=== PATIENT | female | born 1980 | race Caucasian/White ===

== ENCOUNTER 2021-02-13 15:44 | Inpatient (IN) | payer MEDICAID, SELFPAY ==
[2021-02-13 15:47] VITALS: BP 99/63; PULSE 77; RESP 15; TEMP 36.4; O2SAT 98; BMI 19.1
[2021-02-13 16:48] VITALS: BP 107/81; PULSE 78; RESP 16; O2SAT 99
--- NOTE | 2021-02-13 16:49 | EX.ED.SAOD ---
HPI History of Present Illness Chief Complaint: Substance Abuse Narrative Narrative: 40-year-old female presenting for detox from fentanyl. She states she does this daily and does this intravenously. Patient states that she has been doing this for about 4 months. Patient states that prior to that she was then senior care from [id number]. When she left senior care she was in a [place] [facility] for a while. She only recently started doing fentanyl. She is never formally detoxed. She does get detox symptoms from opioids and states that she will get nausea, vomiting, restless legs, abdominal cramping. She denies any other medical problems. She states she only occasionally drinks alcohol and occasionally uses marijuana. She does admit to methamphetamine abuse. [facility] Medical History (Updated 02/13/21 @ 18:23 by AUBREE Kirby) Anxiety Depression Heart murmur Smoker Substance abuse Home Medications doxycycline monohydrate 100 mg PO BID 02/13/21 [History Last Taken Unknown] fluoxetine 10 mg PO DAILY 02/13/21 [History Last Taken Unknown] Allergy/AdvReac Type Severity Reaction Status Date / Time bupropion [From Wellbutrin] Allergy Other Verified 02/13/21 15:45 sulfamethoxazole Allergy Hives Verified 02/13/21 15:45 [From Bactrim] trimethoprim [From Bactrim] Allergy Hives Verified 02/13/21 15:45 Family History (Updated 02/13/21 @ 18:15 by HALEY KirbyC) Father Hypertension Mother CVA (cerebral vascular accident) Surgical History (Updated 02/13/21 @ 18:16 by AUBREE Kirby) History of incision and drainage Social History (Updated 02/13/21 @ 18:17 by AUBREE Kirby) Smoking Status: Current every day smoker tobacco type: cigarettes Smoking packs per day: 1 Smoking cigarettes per day: 20.0 Years smoked: 20 Smoking pack-years: 20.00 alcohol intake: current alcohol intake frequency: a few times a month substance use type: marijuana, opiates and methamphetamine ROS ROS ED Constitutional Constitutional ED: Denies chills, fever(s) or sweats Eyes Eyes: Denies blurry vision or change in vision ENT ENT ED: Denies ear pain, rhinorrhea or sore throat Cardiovascular Cardiovascular: Denies chest pain, palpitations or racing heartbeat Respiratory/Chest Respiratory/Chest: Denies cough, dyspnea or sputum Gastrointestinal Gastrointestinal: Denies abdominal pain, constipation, diarrhea or vomiting Genitourinary Genitourinary ED: Denies dysuria, hematuria or urinary frequency Musculoskeletal Musculoskeletal: Denies arthralgias, myalgias or neck pain Integumentary Denies abscess, Abrasions or rash Neurologic Neurologic: Denies headache(s), paresthesias or weakness Psychiatric Psychiatric: Denies anxiety, depression, suicidal ideation or suicidal thoughts Endocrine Endocrinology: Denies polydipsia or polyuria EXAM Physical Exam Const Vital Signs: 02/13/21 15:47 02/13/21 16:48 Temperature 97.6 F L Temperature Source Temporal Pulse Rate 77 78 Respiratory Rate 15 16 Blood Pressure 99/63 107/81 H Blood Pressure Mean 75 89 Pulse Ox 98 99 Oxygen Delivery Method Room Air Room Air Positive well nourished General Appearance ED: NAD; Negative for pallor HEENT Reports normocephalic, head/scalp atraumatic and moist mucous membranes Eyes PERRL and EOMs intact bilaterally Neck no lymphadenopathy and supple Chest Wall inspection of chest normal and palpation of chest normal Resp normal respiratory effort and clear to auscultation bilaterally Auscultation: Negative for rales, rhonchi or wheezes Cardio regular rate and regular rhythm GI normal to inspection, nondistended, normoactive bowel sounds and non-distended Auscultation: normoactive bowel sounds Palpation: soft Narrative: Deferred Extremity normal to inspection Neuro oriented x3 and CN's II-XII intact bilaterally Sensorium / Orientation: alert Motor Exam: strength 5/5 throughout Psych mental status grossly normal Attitude: No agitated Skin no rashes or lesions noted and no wounds General Skin Exam: Negative for jaundice or pallor MDM MDM MDM Narrative Medical decision making narrative: Patient presenting for fentanyl detox. Patient admits to fentanyl, marijuana, methamphetamine use. Patient's blood work is normal. Vital signs are stable and she is afebrile. She not required anything in the ED for symptoms. hCG is negative. Patient's urine tox brain is pending however this will likely not show opioids since the patient does fentanyl. Given this I will admit her to the hospital for detox. Patient admitted in stable condition. Impression: 1. Fentanyl abuse 2. Methamphetamine abuse Lab Data Attestation: I reviewed the patient's lab results. Labs: Laboratory Results - last 24 hr 02/13/21 02/13/21 02/13/21 16:34 16:34 16:34 WBC 9.4 RBC 4.33 Hgb 13.6 Hct 41.4 MCV 95.6 MCH 31.4 MCHC 32.9 RDW Std Deviation 43.3 RDW Coeff of Dustin 12.3 Plt Count 218 MPV 11.0 Immature Gran % (Auto) 0.200 Neut % (Auto) 71.0 H Lymph % (Auto) 22.7 [place] % (Auto) 4.4 Eos % (Auto) 1.2 Baso % (Auto) 0.5 Absolute Neuts (auto) 6.7 Absolute Lymphs (auto) 2.13 Nucleated RBC % 0 Sodium 138 Potassium 3.6 Chloride 106 Carbon Dioxide 29.0 Anion Gap 3 L BUN 12 Creatinine 0.61 Estim Creat Clear Calc 84.02 Est GFR (MDRD) Af Amer 137 Est GFR (MDRD) Non-Af 113 BUN/Creatinine Ratio 19.5 Glucose 144 H Calcium 8.4 L Serum , Qual Ethyl Alcohol < 3.0 02/13/21 16:34 WBC RBC Hgb Hct MCV MCH MCHC RDW Std Deviation RDW Coeff of Dustin Plt Count MPV Immature Gran % (Auto) Neut % (Auto) Lymph % (Auto) [place] % (Auto) Eos % (Auto) Baso % (Auto) Absolute Neuts (auto) Absolute Lymphs (auto) Nucleated RBC % Sodium Potassium Chloride Carbon Dioxide Anion Gap BUN Creatinine Estim Creat Clear Calc Est GFR (MDRD) Af Amer Est GFR (MDRD) Non-Af BUN/Creatinine Ratio Glucose Calcium Serum , Qual NEGATIVE Ethyl Alcohol Discharge Plan Triage Chief Complaint: Substance Abuse ED Provider: Kalyan Paige Dx/Rx/DC Orders Primary Care Provider: Care Physician,No Primary
[2021-02-13 16:54] LABS: Absolute Lymphocyte Count 2.13 X10^3/uL (0.83-4.51); Absolute Neutrophil Count 6.7 X10^3/uL (2.0-7.7); Basophil# 0.05 X10^3/uL; Basophil% 0.5 % (0-1); Eosinophil# 0.11 X10^3/uL; Eosinophils% 1.2 % (0-5); Hematocrit 41.4 % (37-47); Hemoglobin 13.6 g/dL (12.0-15.0); Lymphocyte # 2.13 X10^3/ul (0.83-4.51); Lymphocyte % 22.7 % (19-41); Mean Corp Hgb Conc 32.9 g/dL (32-36); Mean Corpuscular Hgb 31.4 pg (27.0-32.0); Mean Corpuscular Volume 95.6 fL (81-99); Monocyte# 0.41 X10^3/uL; Monocyte% 4.4 % (0-10); NRBC Flagged by Analyzer 0 % (0-5); Neutrophil # 6.68 X10^3/uL (2.7-7.7); Platelet Count 218 K/mm3 (150-450); RBC Distribution Width CV 12.3 % (11.6-14.6); RBC Distribution Width SD 43.3 fl (35.1-43.9); Red Blood Count 4.33 M/mm3 (4.2-5.4); White Blood Count 9.4 K/mm3 (4.4-11.0)
[2021-02-13 17:01] LABS: Anion Gap 3 (5-15); BUN 12 mg/dL (7-18); BUN/Creat Ratio 19.5 RATIO (10-20); Calcium,Total 8.4 mg/dL (8.5-10.1); Chloride 106 mmol/L (98-107); Creatinine, Serum 0.61 mg/dL (0.55-1.02); EST Glomerular Filtration Rate 113 mL/min (>60); Est Glom Filt Rate - Afr Amer 137 mL/min (>60); Estimated Creatinine Clearance 84.02 ml/min; Glucose 144 mg/dL (74-106); Potassium 3.6 mmol/L (3.5-5.1); Sodium Level 138 mmol/L (136-145)
[2021-02-13 17:15] LABS: Internal QC Validated? YES +Cl - CLEAR BKGD; Pregnancy, Serum, hCG Quali. NEGATIVE Negative
[2021-02-13 17:21] LABS: Alcohol, Blood (Medical)-Serum < 3.0 mg/dL
--- NOTE | 2021-02-13 17:25 | CM.ED ---
Addendum entered by Katherine Cartagena 02/13/21 18:52: Call to [facility] Navigator to update on admission. Original Note: SOCIAL WORK Referral Source: Self-referral Reason for Consult: Substance Abuse-requesting detox from fentanyl Met with patient in room. Introduced role and reason for referral. Patient reports has been injecting fentanyl and last use was this morning. Patient reports has never completed detox here before. Education provided on [facility]. Patient voices no questions at this time. [facility] to be notified upon admission. Plan: Admit to [facility], [facility]
--- NOTE | 2021-02-13 18:13 | PCM.HP.STD ---
Documented by User: AUBREE Kirby 02/13/21 18:24 HPI - General General Date of Admission: 02/13/21 Date of Service: 02/13/21 Chief Complaint: Desire for detoxification from opioids HPI Narrative OLGA HERNANDEZ, is a 40 F who presents for detoxification from opioids. Patient states that she began using fentanyl approximately 4 months ago after leaving [facility]. Patient states that from [id number] she was in penitentiary and then subsequently at the [facility]. Patient states that she also uses methamphetamines and occasionally marijuana. Patient states that she has experienced withdrawal symptoms before when she has not been able to get her next dose of opioids. Patient reports during this episode she has nausea vomiting and restless legs. Patient denies fever, chills, shortness of breath, cough, chest pain, nausea, vomiting, diarrhea, constipation. [facility] Medical History Anxiety Depression Heart murmur Smoker Substance abuse Home Medications doxycycline monohydrate 100 mg PO BID 02/13/21 [History Last Taken Unknown] fluoxetine 10 mg PO DAILY 02/13/21 [History Last Taken Unknown] Allergy/AdvReac Type Severity Reaction Status Date / Time bupropion [From Wellbutrin] Allergy Other Verified 02/13/21 15:45 sulfamethoxazole Allergy Hives Verified 02/13/21 15:45 [From Bactrim] trimethoprim [From Bactrim] Allergy Hives Verified 02/13/21 15:45 Family History (Updated 02/13/21 @ 18:15 by AUBREE Kirby) Father Hypertension Mother CVA (cerebral vascular accident) Surgical History (Updated 02/13/21 @ 18:16 by AUBREE Kirby) History of incision and drainage Social History (Updated 02/13/21 @ 18:17 by AUBREE Kirby) Smoking Status: Current every day smoker tobacco type: cigarettes Smoking packs per day: 1 Smoking cigarettes per day: 20.0 Years smoked: 20 Smoking pack-years: 20.00 alcohol intake: current alcohol intake frequency: a few times a month substance use type: marijuana, opiates and methamphetamine ROS Constitutional Constitutional: Denies anorexia, chills, fatigue, fever(s) or weakness Cardiovascular Cardiovascular: Denies chest pain, edema or palpitations Respiratory/Chest Respiratory/Chest: Denies cough, shortness of breath at rest or shortness of breath with exertion Gastrointestinal Gastrointestinal: Denies abdominal pain, constipation, diarrhea, nausea or vomiting Genitourinary Genitourinary: Denies dysuria Musculoskeletal Musculoskeletal: Denies back pain, extremity pain, joint pain or joint stiffness Integumentary Integumentary: Denies dry skin Neurologic Neurologic: Denies abnormal gait, abnormal speech, confusion or dizziness Psychiatric Psychiatric: Reports anxiety and depression Endocrine Endocrinology: Denies change in body appearance Hematologic/Lymphatic Hematologic/Lymphatic: Denies easy bleeding or easy bruising Vital Signs Vital Signs Vital Signs: 02/13/21 15:47 02/13/21 16:48 Temperature 97.6 F L Temperature Source Temporal Pulse Rate 77 78 Respiratory Rate 15 16 Blood Pressure 99/63 107/81 H Blood Pressure Mean 75 89 Pulse Ox 98 99 Oxygen Delivery Method Room Air Room Air Weight Weight: 97 lb 10.636 oz Body Mass Index (BMI) 19.1 Physical Exam Const alert and oriented x3 General Appearance: cooperative HEENT normocephalic and head/scalp atraumatic Eyes conjunctivae normal and no scleral icterus Neck supple and no JVD General: trachea midline Resp normal respiratory effort, normal air movement and clear to auscultation bilaterally Cardio regular rate, regular rhythm, S1 normal heart sound and S2 normal heart sound GI normal to inspection, nondistended, normoactive bowel sounds, soft to palpation and non-tender Extremity normal capillary refill and no clubbing, cyanosis or edema General Extremity: no tenderness to palpation of joints or extremities Skin Skin Narrative: Patient has multiple scabbed areas to bilateral arms as well as IV track bill General Skin Exam: turgor normal Rashes: no rashes Neuro no focal motor deficits and no sensory deficits noted Speech: speech normal Motor Exam: Negative for general weakness Psych thought process normal and cooperative Appearance: appropriate Mood & Affect: anxious Results Lab / Micro Data Result Diagrams: 02/13/21 16:34 02/13/21 16:34 Labs: Laboratory Results - last 24 hr 02/13/21 16:34: WBC 9.4, RBC 4.33, Hgb 13.6, Hct 41.4, MCV 95.6, MCH 31.4, MCHC 32.9, RDW Std Deviation 43.3, RDW Coeff of Dustin 12.3, Plt Count 218, MPV 11.0, Immature Gran % (Auto) 0.200, Neut % (Auto) 71.0 H, Lymph % (Auto) 22.7, [place] % (Auto) 4.4, Eos % (Auto) 1.2, Baso % (Auto) 0.5, Absolute Neuts (auto) 6.7, Absolute Lymphs (auto) 2.13, Nucleated RBC % 0 02/13/21 16:34: Sodium 138, Potassium 3.6, Chloride 106, Carbon Dioxide 29.0, Anion Gap 3 L, BUN 12, Creatinine 0.61, Estim Creat Clear Calc 84.02, Est GFR (MDRD) Af Amer 137, Est GFR (MDRD) Non-Af 113, BUN/Creatinine Ratio 19.5, Glucose 144 H, Calcium 8.4 L 02/13/21 16:34: Ethyl Alcohol < 3.0 02/13/21 16:34: Serum , Qual NEGATIVE Assessment & Plan Assessment/Plan (1) Tobacco abuse: (2) Marijuana abuse: (3) Methamphetamine abuse: (4) Opioid abuse: (5) Desire for detoxification: (6) Anxiety: (7) Depression: QUALIFIERS: Depression Type: unspecified Qualified Code(s): F32.9 - Major depressive disorder, single episode, unspecified PLAN: 1. Desire for detoxification from opioids and methamphetamines -Admit to [facility] as part of ramp program -Buprenorphine taper per protocol along with supportive medications -Regular diet -Case management consulted for coordination with 180 follow-up for outpatient therapy -O2 per protocol -Vital signs per protocol 2. Depression and anxiety -Continue Prozac 3. Marijuana abuse 4. Tobacco abuse -Inpatient smoking cessation ordered -NicoDerm patch DVT prophylaxis-no pharmacological prophylaxis indicated This patient was seen by Katherine Webber NP-C under the supervision of Dr. Stewart. Documented by User: Dr. Jag Stewart MD 02/13/21 19:33 HPI - General General Date of Admission: 02/13/21 Date of Service: 02/13/21 Chief Complaint: Opioid withdrawal syndrome HPI Narrative This is a 40-year-old female with chronic opioid use and dependence for last 6 to 8 years, has been in penitentiary from 2016 to January 2020 came to ER for medical stabilization for opioid withdrawal symptoms. Patient uses half a gram of IV fentanyl along with snorting methamphetamine, crack cocaine. She also drinks little bit alcohol. Smokes a pack of cigarette every day since early 12 to 13 years of age. She has a scar and a scab over bilateral antecubital region of forearm. She also has a scar janeen over right forearm of previous surgery of deep abscess and left leg of deep muscle infection. History of infective endocarditis in the past but did not require valve replacement as per the patient. Was treated with IV antibiotic. [facility] Medical History Anxiety Depression Heart murmur Smoker Substance abuse Home Medications doxycycline monohydrate 100 mg PO BID 02/13/21 [History Last Taken Unknown] fluoxetine 10 mg PO DAILY 02/13/21 [History Last Taken Unknown] Allergy/AdvReac Type Severity Reaction Status Date / Time bupropion [From Wellbutrin] Allergy Other Verified 02/13/21 15:45 sulfamethoxazole Allergy Hives Verified 02/13/21 15:45 [From Bactrim] trimethoprim [From Bactrim] Allergy Hives Verified 02/13/21 15:45 Family History (Updated 02/13/21 @ 18:15 by AUBREE Kirby) Father Hypertension Mother CVA (cerebral vascular accident) Surgical History (Updated 02/13/21 @ 18:16 by AUBREE Kirby) History of incision and drainage Social History (Updated 02/13/21 @ 18:17 by AUBREE Kirby) Smoking Status: Current every day smoker tobacco type: cigarettes Smoking packs per day: 1 Smoking cigarettes per day: 20.0 Years smoked: 20 Smoking pack-years: 20.00 alcohol intake: current alcohol intake frequency: a few times a month substance use type: marijuana, opiates and methamphetamine Physical Exam Narrative General: Alert, Oriented x3, Cooperative, low BMI 19.1 kg/m? HEENT: Atraumatic, PERRLA, EOMI, Normocephalic Oral: No Gingival or Mucosal Lesions/ Ulcerations Neck: Supple, No JVD, Negative Carotid Bruits Lungs: Air entry diminished in bilateral lung bases. No crepitation/rhonchi Cardiovascular: Regular rate, Regular Rhythm, Normal S1, Normal S2, No murmurs Abdomen: Bowel Sounds Present, Soft, Non Tender, Non-Distended : No renal angle tenderness. No suprapubic tenderness. Extremities: Scar janeen over bilateral forearm with scabs. Scar janeen over left leg on lateral aspect. No edema, Capillary Refill Less than 3 Seconds Skin: Small scab and eschar on both upper extremities. IV needle bill. Musculoskeletal: No Tenderness to Palpation of Joints or Extremities Neurological: Cranial nerves II-XII grossly intact, Deep Tendon Reflexes 2+/4 and Symmetrical, Neuro grossly intact Psych/Mental Status: Anxious and restless. Results Lab / Micro Data Result Diagrams: 02/13/21 16:34 02/13/21 16:34 Assessment & Plan Assessment/Plan (1) Tobacco abuse: (2) Marijuana abuse: (3) Methamphetamine abuse: (4) Opioid abuse: (5) Anxiety: (6) Depression: QUALIFIERS: Depression Type: unspecified Qualified Code(s): F32.9 - Major depressive disorder, single episode, unspecified PLAN: This patient was seen in conjunction with CARMELLA Murphy. I have independently interviewed and examined the patient and reviewed pertinent history, examination findings, laboratory and plan of management. I have reviewed the note and agree with the documented findings with the few additional points. In brief, patient is admitted for medical stabilization of acute opioid withdrawal syndrome with history of chronic opioid use and dependence. Patient is on buprenorphine based other medications as mentioned above. Patient also stated she has been started on doxycycline for 3 weeks about 3 days ago for a rash in the left back by PCP for erythema migrans rash. Will continue doxycycline. She is also fluoxetine for depression anxiety and continued. She has chronic methamphetamine, crack cocaine use disorder and dependence, nicotine use disorder and dependence from chronic smoking, marijuana use. VTE prophylaxis: Low risk. Early ambulation encouraged I have discussed my assessment with CARMELLA Murphy and orders have been reviewed. Charges/Coding Visit Charges Inpatient E&M: 86991 Init Hosp L3
[2021-02-13 18:19] VITALS: BP 90/68; PULSE 78; RESP 14; TEMP 36.6; O2SAT 98
[2021-02-13 19:43] VITALS: BMI 19.8
[2021-02-13 19:45] VITALS: BP 92/59; PULSE 76; RESP 16; TEMP 36.6; O2SAT 100
--- NOTE | 2021-02-13 20:50 | NURSING ---
COWS not completed at this time, patient resting soundly with eyes closed. Will continue to monitor.
[2021-02-13] MEDS: Doxycycline 100 MG CAPSULE PO (22:44)
[2021-02-13 22:45] VITALS: BP 105/65; PULSE 76; RESP 16; TEMP 36.6; O2SAT 96
--- NOTE | 2021-02-13 23:30 | NURSING ---
COWS score not done at this time, patient sleeping, no distress noted
[2021-02-14 02:22] VITALS: BP 103/62; PULSE 65; RESP 14; TEMP 36.6; O2SAT 94
[2021-02-14 05:38] VITALS: BP 111/54; PULSE 73; RESP 18; TEMP 36.7; O2SAT 97
[2021-02-14 06:10] LABS: Amphetamine Urine VISTA POSITIVE (<1000 ng/mL); Barbiturate Urine VISTA NEGATIVE (< 200 ng/mL); Benzodiazepine Urine VISTA NEGATIVE (< 200 ng/mL); Cocaine Urine VISTA NEGATIVE (< 300 ng/mL); Ecstacy Urine VISTA NEGATIVE (< 500 ng/mL); Methadone Urine VISTA NEGATIVE (< 300 ng/mL); PCP Urine VISTA NEGATIVE (< 25 ng/mL); THC Urine VISTA POSITIVE (< 50 ng/mL); Vista UDS pH Range 7
[2021-02-14 07:06] VITALS: O2SAT 96
[2021-02-14 09:33] VITALS: BP 117/54; PULSE 73; RESP 16; TEMP 36.3; O2SAT 96
[2021-02-14] MEDS: Dicyclomine 10 MG Capsule 20 MG PO ×2 (09:40→16:50)
[2021-02-14] MEDS: Ondansetron 8 MG Tablet PO (09:40)
[2021-02-14] MEDS: Methocarbamol 750 MG Tablet 1500 MG PO ×2 (09:40→16:50)
[2021-02-14] MEDS: hydrOXYzine PAM 25 MG Capsule 50 MG PO ×2 (09:40→16:50)
[2021-02-14] MEDS: cloNIDine HCl 0.1 MG Tablet PO (09:40)
[2021-02-14] MEDS: FLUoxetine 10 MG Capsule PO (09:41)
[2021-02-14] MEDS: Doxycycline 100 MG CAPSULE PO ×2 (09:41→21:51)
--- NOTE | 2021-02-14 09:42 | ADDICTION ---
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 PT A+Ox4. All assessments and d/c plan completed. PT chose to set up f/u care independently post d/c from [facility]. PT plans to engage with [facility] for services. PT reports independent transportation.
[2021-02-14] MEDS: Buprenorphine HCl 2 MG TAB.SUBL SL ×2 (10:35→18:32)
--- NOTE | 2021-02-14 12:19 | PN.HOSP_ITS ---
Subjective Subjective Patient is having mild withdrawal symptoms including restlessness, anxiety, aches and pain but denies hallucination, agitation or delirium. Objective Data Objective Data Vital Signs: Vital Signs Temp Pulse Resp BP Pulse Ox 97.4 F L 73 16 117/54 L 96 02/14/21 09:33 02/14/21 09:33 02/14/21 09:33 02/14/21 09:33 02/14/21 09:33 Oxygen Delivery Method Room Air Weight: 101 lb 9.001 oz Body Mass Index (BMI) 19.8 Intake & Output: Intake and Output for Last 24 Hours 02/12/21 02/13/21 02/14/21 23:59 23:59 23:59 Intake Total 250 / 250 120 / 120 Output Total 250 / 250 Balance 250 / 250 -130 / -130 Lab / Micro Data Result Diagrams: 02/13/21 16:34 02/13/21 16:34 Labs: Laboratory Results - last 24 hr 02/13/21 16:34: WBC 9.4, RBC 4.33, Hgb 13.6, Hct 41.4, MCV 95.6, MCH 31.4, MCHC 32.9, RDW Std Deviation 43.3, RDW Coeff of Dustin 12.3, Plt Count 218, MPV 11.0, Immature Gran % (Auto) 0.200, Neut % (Auto) 71.0 H, Lymph % (Auto) 22.7, [place] % (Auto) 4.4, Eos % (Auto) 1.2, Baso % (Auto) 0.5, Absolute Neuts (auto) 6.7, Absolute Lymphs (auto) 2.13, Nucleated RBC % 0 02/13/21 16:34: Sodium 138, Potassium 3.6, Chloride 106, Carbon Dioxide 29.0, Anion Gap 3 L, BUN 12, Creatinine 0.61, Estim Creat Clear Calc 84.02, Est GFR (MDRD) Af Amer 137, Est GFR (MDRD) Non-Af 113, BUN/Creatinine Ratio 19.5, Glucose 144 H, Calcium 8.4 L 02/13/21 16:34: Ethyl Alcohol < 3.0 02/13/21 16:34: Serum , Qual NEGATIVE 02/14/21 05:40: Urine Opiates Screen NEGATIVE, Urine Methadone Screen NEGATIVE, Ur Barbiturates Screen NEGATIVE, Ur Phencyclidine Scrn NEGATIVE, Ur Amphetamines Screen POSITIVE H, U Methamphetamin-MDMA NEGATIVE, U Benzodiazepines Scrn NEGATIVE, Urine Cocaine Screen NEGATIVE, U Cannabinoids Screen POSITIVE H, Ur Drug Screen Comment Physical Exam Narrative General: Lethargic, oriented x3, Cooperative, low BMI 19.1 kg/m? HEENT: Atraumatic, PERRLA, EOMI, Normocephalic Oral: No Gingival or Mucosal Lesions/ Ulcerations Neck: Supple, No JVD, Negative Carotid Bruits Lungs: Air entry diminished in bilateral lung bases. No crepitation/rhonchi Cardiovascular: Regular rate, Regular Rhythm, Normal S1, Normal S2, No murmurs Abdomen: Bowel Sounds Present, Soft, Non Tender, Non-Distended : No renal angle tenderness. No suprapubic tenderness. Extremities: Chronic scar janeen over bilateral forearm with scabs. Chronic scar janeen over left leg on lateral aspect. No edema, Capillary Refill Less than 3 Seconds Skin: Small scab and eschar on both upper extremities. IV needle bill. Musculoskeletal: No Tenderness to Palpation of Joints or Extremities Neurological: Cranial nerves II-XII grossly intact, Deep Tendon Reflexes 2+/4 and Symmetrical, Neuro grossly intact Psych/Mental Status: Anxious and restless. Assessment & Plan Assessment/Plan (1) Tobacco abuse: (2) Marijuana abuse: (3) Methamphetamine abuse: (4) Opioid abuse: (5) Anxiety: (6) Depression: QUALIFIERS: Depression Type: unspecified Qualified Code(s): F32.9 - Major depressive disorder, single episode, unspecified PLAN: The patient is admitted for medical stabilization of acute opioid withdrawal syndrome with history of chronic opioid use and dependence. 1. Acute opioid withdrawal syndrome with chronic opioid use and dependence: Patient is on buprenorphine and other adjunctive medications. 2. Erythema migrans rash?as per PCP: Rash is resolved. Patient also stated she has been started on doxycycline for 3 weeks, started 3 days ago prior to admission for a rash in the left back by PCP for erythema migrans rash. Doxycycline continued. 3. Anxiety and depression: On fluoxetine, continued 4. chronic methamphetamine, crack cocaine use disorder and dependence, nicotine use disorder and dependence from chronic smoking, marijuana use. VTE prophylaxis: Low risk. Early ambulation encouraged Charges/Coding Visit Charges Inpatient E&M: 89721 Subs Hosp L2
[2021-02-14] MEDS: Acetaminophen 325 MG Tablet 650 MG PO (12:45)
[2021-02-14] MEDS: Gabapentin 300 MG Capsule PO (12:45)
[2021-02-14 16:46] VITALS: BP 117/78; PULSE 58; RESP 16; TEMP 36.5; O2SAT 98
[2021-02-14 20:48] VITALS: BP 128/84; PULSE 61; RESP 16; TEMP 36.7; O2SAT 100
[2021-02-15] MEDS: Buprenorphine HCl 2 MG TAB.SUBL SL ×3 (02:21→18:01)
[2021-02-15 02:48] VITALS: BP 114/67; PULSE 61; RESP 16; TEMP 36.8; O2SAT 100
[2021-02-15] MEDS: Gabapentin 300 MG Capsule PO ×2 (04:17→21:03)
[2021-02-15] MEDS: cloNIDine HCl 0.1 MG Tablet PO ×2 (04:57→17:00)
[2021-02-15 07:08] VITALS: O2SAT 96
[2021-02-15] MEDS: FLUoxetine 10 MG Capsule PO (10:41)
[2021-02-15] MEDS: Doxycycline 100 MG CAPSULE PO ×2 (10:41→21:03)
[2021-02-15 10:43] VITALS: BP 100/71; PULSE 70; RESP 16; TEMP 36.8; O2SAT 99
[2021-02-15] MEDS: hydrOXYzine PAM 25 MG Capsule 50 MG PO (11:45)
--- NOTE | 2021-02-15 12:29 | PCM.PN.HOSP ---
Subjective Subjective Patient is more awake and alert. Withdrawal symptoms are well controlled. Objective Data Objective Data Vital Signs: Vital Signs Temp Pulse Resp BP Pulse Ox 98.2 F 70 16 100/71 99 02/15/21 10:43 02/15/21 10:43 02/15/21 10:43 02/15/21 10:43 02/15/21 10:43 Oxygen Delivery Method Room Air Weight: 101 lb 9.001 oz Body Mass Index (BMI) 19.8 Intake & Output: Intake and Output for Last 24 Hours 02/13/21 02/14/21 02/15/21 23:59 23:59 23:59 Intake Total 250 / 250 120 / 120 Output Total 250 / 250 Balance 250 / 250 -130 / -130 Medical Nutrition Assessment Dietitian: Nutrition Therapy Diagnosis Start: 02/14/21 13:59 Freq: Status: Active Protocol: Document 02/14/21 13:59 AG (Rec: 02/14/21 13:59 AG [id number]) Nutrition Malnutrition Evidence of Malnutrition Exists Yes Malnutrition (severe): Social/Behavioral/ Environmental Evidenced By Suboptimal Energy Intake ( Severe),Weight Loss (Severe), Physical Changes (Severe) Clinical Problem Acute Disease or Injury Related Malnutrition Etiology Severe malnutrition in the context of social/ environmental circumstances r/ t inadequate protein intake and lack of nutrient-dense foods d/t drug use Signs/Symptoms as evidenced by pt report of consuming 1 meal per day and consuming </=50% of estimated energy requirements x1 month, unintentional weight loss of 28#/22% x1 month, and severe muscle and fat wasting of orbital and clavicle regions. Status Active Problem Recommendation Dietitian Recommendations/Changes Continue regular/general diet. Add chocolate ensure enlive 240mL at meals. Lab / Micro Data Result Diagrams: 02/13/21 16:34 02/13/21 16:34 Physical Exam Narrative General: Alert, awake, oriented x3, Cooperative, low BMI 19.1 kg/m? HEENT: Atraumatic, PERRLA, EOMI, Normocephalic Oral: No Gingival or Mucosal Lesions/ Ulcerations Neck: Supple, No JVD, Negative Carotid Bruits Lungs: Air entry diminished in bilateral lung bases. No crepitation/rhonchi Cardiovascular: Regular rate, Regular Rhythm, Normal S1, Normal S2, No murmurs Abdomen: Bowel Sounds Present, Soft, Non Tender, Non-Distended : No renal angle tenderness. No suprapubic tenderness. Extremities: Chronic scar janeen over bilateral forearm with scabs. Chronic scar janeen over left leg on lateral aspect. No edema, Capillary Refill Less than 3 Seconds Skin: Small scab and scar on both upper extremities. IV needle bill. Musculoskeletal: No Tenderness to Palpation of Joints or Extremities Neurological: Cranial nerves II-XII grossly intact, Deep Tendon Reflexes 2+/4 and Symmetrical, Neuro grossly intact Psych/Mental Status: Anxious but she is quiet. Assessment & Plan Assessment/Plan (1) Tobacco abuse: (2) Marijuana abuse: (3) Methamphetamine abuse: (4) Opioid abuse: (5) Anxiety: (6) Depression: QUALIFIERS: Depression Type: unspecified Qualified Code(s): F32.9 - Major depressive disorder, single episode, unspecified PLAN: The patient is admitted for medical stabilization of acute opioid withdrawal syndrome with history of chronic opioid use and dependence. 1. Acute opioid withdrawal syndrome with chronic opioid use and dependence: Patient is on buprenorphine and other adjunctive medications. 02/15: Withdrawal symptoms are well controlled. Heart rate and blood pressure in normal range. 2. Erythema migrans rash?as per PCP: Rash is resolved. Patient also stated she has been started on doxycycline for 3 weeks, started 3 days ago prior to admission for a rash in the left back by PCP for erythema migrans rash. Doxycycline continued. 3. Anxiety and depression: On fluoxetine, continued 4. chronic methamphetamine, crack cocaine use disorder and dependence, nicotine use disorder and dependence from chronic smoking, marijuana use. VTE prophylaxis: Low risk. Early ambulation encouraged Charges/Coding Visit Charges Inpatient E&M: 75326 Subs Hosp L2
[2021-02-15 16:55] VITALS: BP 121/79; PULSE 65; RESP 18; TEMP 37.1; O2SAT 99
[2021-02-15] MEDS: Acetaminophen 325 MG Tablet 650 MG PO (17:00)
[2021-02-15] MEDS: Methocarbamol 750 MG Tablet 1500 MG PO (17:00)
[2021-02-15 20:55] VITALS: BP 120/73; PULSE 67; RESP 18; TEMP 36.9; O2SAT 99
[2021-02-16 02:41] VITALS: BP 116/80; PULSE 66; RESP 16; TEMP 36.8; O2SAT 99
[2021-02-16] MEDS: Buprenorphine HCl 2 MG TAB.SUBL SL ×2 (02:48→10:32)
[2021-02-16] MEDS: hydrOXYzine PAM 25 MG Capsule 50 MG PO ×2 (02:48→08:48)
[2021-02-16] MEDS: cloNIDine HCl 0.1 MG Tablet PO (02:48)
[2021-02-16] MEDS: Methocarbamol 750 MG Tablet 1500 MG PO ×2 (02:48→08:47)
[2021-02-16] MEDS: Dicyclomine 10 MG Capsule 20 MG PO ×2 (02:48→08:48)
[2021-02-16 08:40] VITALS: BP 92/58; PULSE 85; RESP 16; TEMP 36.5; O2SAT 98
[2021-02-16] MEDS: Ondansetron 8 MG Tablet PO (08:47)
[2021-02-16 08:50] VITALS: PULSE 84
--- NOTE | 2021-02-16 09:12 | PCM.DC ---
Discharge Instructions Diet Discharge Diet: No restrictions Activity Discharge Activity: Return to Normal Activity and May Not Drive Weight Bearing Status: Weight bearing as tolerated Dressing / Incision Call your doctor if you observe: Coldness, Increased Pain, Numbness or Tingling, Change in Color, Inability to urinate, Inability to have a bowel movement, Shortness of breath, Dizziness, Fainting spells, Swelling in the ankles, Chest pain, Prolonged hiccupping, Increased palpitations (irregular heartbeat), Calf discomfort and Uncontrolled pain Follow Up Care Test Results: Test results from this visit will be discussed in further detail at your follow-up appointment, if applicable. Discharge Plan Admission Admit Date/Time: 02/13/21 18:12 Primary Reason for Your Visit: Acute opioid withdrawal syndrome Attending Provider: Jag Stewart Primary Care Provider: Care Physician,Dee Dee Primary Instructions Patient Instructions: ED Opiate Abuse Discharge Orders/Prescriptions Prescriptions: Continued fluoxetine 10 mg Capsule 10 mg PO DAILY RF: 0 doxycycline monohydrate 100 mg Capsule 100 mg PO BID Qty: 0 RF: 0 Referrals / Follow Up: Care Physician,No Primary [Primary Care Provider] - In 1 Week Disposition Disposition (needs filled in before D/C Order can be placed): Home, Self Care
--- NOTE | 2021-02-16 09:15 | DS.PCM_ITS ---
Providers Date of Admission: 02/13/21 Primary Care Physician: No Primary Care Phys Reason For Visit: OPIOID DETOX Diagnosis Discharge Diagnosis (1) Tobacco abuse: Status: Acute Code(s): Z72.0 - Tobacco use (2) Marijuana abuse: Status: Acute Code(s): F12.10 - Cannabis abuse, uncomplicated (3) Methamphetamine abuse: Status: Acute Code(s): F15.10 - Other stimulant abuse, uncomplicated (4) Opioid abuse: Status: Acute Code(s): F11.10 - Opioid abuse, uncomplicated (5) Anxiety: Status: Acute Code(s): F41.9 - Anxiety disorder, unspecified (6) Depression: Status: Acute Code(s): F32.9 - Major depressive disorder, single episode, unspecified Qualifiers: Depression Type: unspecified Qualified Code(s): F32.9 - Major depressive disorder, single episode, unspecified Medications at Discharge Home Medications doxycycline monohydrate 100 mg PO BID #0 cap 02/16/21 fluoxetine 10 mg PO DAILY #0 cap 02/16/21 hydroxyzine pamoate 25 mg PO TID PRN #30 cap 02/16/21 nicotine 21 mg TRANSDERMAL DAILY #30 ea 02/16/21 prochlorperazine maleate [Compazine] 10 mg PO Q8H PRN #30 tab 02/16/21 Hospital Course Summary of Care Provided Hospital Course: The patient was admitted for medical stabilization of acute opioid withdrawal syndrome with history of chronic opioid use and dependence. 1. Acute opioid withdrawal syndrome with chronic opioid use and dependence: Patient is on buprenorphine and other adjunctive medications. Withdrawal symptoms are well controlled. Heart rate and blood pressure in normal range. Patient is discharged on hydroxyzine and Zofran as per patient request. 2. Erythema migrans rash?as per PCP: Rash is resolved. Patient also stated she has been started on doxycycline for 3 weeks, started 3 days ago prior to admission for a rash in the left back by PCP for erythema migrans rash. Doxycycline continued as ordered by PCP 3. Anxiety and depression: On fluoxetine, continued 4. chronic methamphetamine, crack cocaine use disorder and dependence, nicotine use disorder and dependence from chronic smoking, marijuana use. Advised cessation. VTE prophylaxis: Low risk. Early ambulation encouraged Discharge medication reconciliation done. Discharge follow-up instructions completed. Discharge process discussed with the patient and all questions were answered to patient's satisfaction. Total time spent, exact 35 minutes on discharge meds reconciliation, ex amination, coordination of care with nurses and ancillary staff, review of imaging and blood test and discussion with the patient on follow-up instructions Physical Exam Narrative Seen and examined. Withdrawal symptoms are well controlled. Patient agreeable for discharge. Requested some medication for anxiety control and nausea and vomiting General: Alert, awake, oriented x3, Cooperative, low BMI 19.1 kg/m? HEENT: Atraumatic, PERRLA, EOMI, Normocephalic Oral: No Gingival or Mucosal Lesions/ Ulcerations Neck: Supple, No JVD, Negative Carotid Bruits Lungs: Air entry diminished in bilateral lung bases. No crepitation/rhonchi Cardiovascular: Regular rate, Regular Rhythm, Normal S1, Normal S2, No murmurs Abdomen: Bowel Sounds Present, Soft, Non Tender, Non-Distended : No renal angle tenderness. No suprapubic tenderness. Extremities: Chronic scar janeen over bilateral forearm with scabs. Chronic scar janeen over left leg on lateral aspect. No edema, Capillary Refill Less than 3 Seconds Skin: Small scab and scar on both upper extremities. IV needle bill. Musculoskeletal: No Tenderness to Palpation of Joints or Extremities Neurological: Cranial nerves II-XII grossly intact, Deep Tendon Reflexes 2+/4 and Symmetrical, Neuro grossly intact Psych/Mental Status: Relaxed. Affect appropriate Medical Records Data Medical Nutrition Assessment Dietitian: Nutrition Therapy Diagnosis Start: 02/14/21 13:59 Freq: Status: Active Protocol: Document 02/14/21 13:59 AG (Rec: 02/14/21 13:59 AG [id number]) Nutrition Malnutrition Evidence of Malnutrition Exists Yes Malnutrition (severe): Social/Behavioral/ Environmental Evidenced By Suboptimal Energy Intake ( Severe),Weight Loss (Severe), Physical Changes (Severe) Clinical Problem Acute Disease or Injury Related Malnutrition Etiology Severe malnutrition in the context of social/ environmental circumstances r/ t inadequate protein intake and lack of nutrient-dense foods d/t drug use Signs/Symptoms as evidenced by pt report of consuming 1 meal per day and consuming </=50% of estimated energy requirements x1 month, unintentional weight loss of 28#/22% x1 month, and severe muscle and fat wasting of orbital and clavicle regions. Status Active Problem Recommendation Dietitian Recommendations/Changes Continue regular/general diet. Add chocolate ensure enlive 240mL at meals. Weight / BMI Weight Weight: 101 lb 9.001 oz Body Mass Index (BMI) 19.8 ABG / Lab / Microbiology Data Result Diagrams: 02/13/21 16:34 02/13/21 16:34 D/C Instructions Discharge Diet: No restrictions Weight Bearing Status: Weight bearing as tolerated Call your doctor if you observe: Coldness, Increased Pain, Numbness or Tingling, Change in Color, Inability to urinate, Inability to have a bowel movement, Shortness of breath, Dizziness, Fainting spells, Swelling in the ankles, Chest pain, Prolonged hiccupping, Increased palpitations (irregular heartbeat), Calf discomfort and Uncontrolled pain Meaningful Use Info Meaningful Use Diagnoses (Choose all that apply): None applicable Discharge Plan Admission Admit Date/Time: 02/13/21 18:12 Primary Reason for Your Visit: Acute opioid withdrawal syndrome Attending Provider: Jag Stewart Primary Care Provider: Care Physician,Dee Dee Primary Instructions Patient Instructions: ED Opiate Abuse Discharge Orders/Prescriptions Prescriptions: New nicotine 21 mg/24 hr Patch 24 Hour 21 mg transdermal DAILY Qty: 30 RF: 0 prochlorperazine maleate [Compazine] 10 mg tablet 10 mg PO Q8H PRN (Reason: nausea and vomiting) Qty: 30 RF: 0 hydroxyzine pamoate 25 mg capsule 25 mg PO TID PRN (Reason: anxiety) Qty: 30 RF: 0 Continued doxycycline monohydrate 100 mg Capsule 100 mg PO BID Qty: 0 RF: 0 fluoxetine 10 mg Capsule 10 mg PO DAILY Qty: 0 RF: 0 Referrals / Follow Up: Care Physician,No Primary [Primary Care Provider] - In 1 Week Disposition Disposition (needs filled in before D/C Order can be placed): Home, Self Care Charges/Coding Visit Charges Inpatient E&M: 26339 Disch Hosp
[2021-02-16] MEDS: Doxycycline 100 MG CAPSULE PO (10:32)
[2021-02-16] MEDS: FLUoxetine 10 MG Capsule PO (10:32)
== END 2021-02-16 12:16 | disposition home or self-care (01) | DRG 773 ==
LOC: ED 16:38 → MS3 18:17
PROVIDERS: Admitting Provider Internal Medicine; Emergency Provider Student in an Organized Health Care Education/Training Program; Visit Provider Internal Medicine
DX: F11.23 Opioid dependence with withdrawal (principal); R21 Rash and other nonspecific skin eruption; F14.20 Cocaine dependence, uncomplicated; F15.20 Other stimulant dependence, uncomplicated; F12.10 Cannabis abuse, uncomplicated; F32.9 Major depressive disorder, single episode, unspecified; F41.9 Anxiety disorder, unspecified; F17.210 Nicotine dependence, cigarettes, uncomplicated; Z79.899 Other long term (current) drug therapy; Z79.2 Long term (current) use of antibiotics
CPT/HCPCS: 36415; 80048; 80307; 82077; 84703; 85025; 97802; 99283; 99406